=== PATIENT | female | born 1990 | race Caucasian/White ===

== ENCOUNTER 2019-08-25 05:03 | Inpatient (IN) | payer BC ==
[2019-08-25 06:09] VITALS: BMI 37.4
[2019-08-25] MEDS ORDERED: NS / Oxytocin 40 units/1000ml 1,000 ML IV PRN (07:05)
[2019-08-25] MEDS ORDERED: Methylergonovine 0.2 MG/ML VIAL IM PRN (07:05)
[2019-08-25] MEDS ORDERED: Misoprostol 200 MCG TAB PR PRN (07:05)
[2019-08-25] MEDS ORDERED: hydrALAZINE 20 MG/ML VIAL SLOW IVP PRN ×2 (07:05→16:00)
[2019-08-25] MEDS ORDERED: Promethazine HCl 25 MG/ML VIAL IM PRN ×3 (07:05→16:00)
[2019-08-25] MEDS ORDERED: Lidocaine 1% (PF) 30 ML VIAL SC PRN (07:05)
[2019-08-25] MEDS ORDERED: Ibuprofen 800 MG TAB PO PRN (07:05)
[2019-08-25] MEDS ORDERED: Carboprost 250 MCG/ML AMP IM PRN (07:05)
[2019-08-25] MEDS ORDERED: Acetaminophen 500 MG TAB PO PRN (07:05)
[2019-08-25] MEDS ORDERED: HYDROcodone/Acetaminophen 5/325 mg Tablet PO PRN (07:05)
[2019-08-25] MEDS ORDERED: Ondansetron PF 4 MG/2 ML Vial IVP PRN ×3 (07:05→16:00)
[2019-08-25] MEDS ORDERED: Butorphanol Tartrate 1 MG/ML VIAL SLOW IVP PRN (07:05)
[2019-08-25] MEDS ORDERED: NS w/ Oxytocin 10 units 500 ML IV SCH (07:15)
[2019-08-25] MEDS: Lactated Ringer's 1,000 ML IV SCH ×2 (07:18→10:11)
[2019-08-25 07:31] LABS: Hemoglobin 11.6 g/dL (12.0-16.0); Mean Corpuscular HGB CONC 34.2 g/dL (32.0-36.0); Mean Corpuscular Volume 87.6 fL (78.0-98.0); Platelet Count 153 thou/uL (130-400); RBC Distribution Width 11.7 % (11.5-14.5); Red Blood Cell (RBC) Count 3.88 mill/uL (4.20-5.40)
[2019-08-25] MEDS ORDERED: Fentanyl 4 mcg/Bup 0.1% Cadd 100 ML ONE (07:48)
--- NOTE | 2019-08-25 08:11 | PDOC.LDHP ---
Labor and Delivery H&P Chief complaint: scheduled induction HPI: 29yo at 39w1d by LMP here for elective IOL due to EFW > 99%ile and favorable SVE. No complaints Current gestational age (weeks): 39 Due date: 08/31/19 Dating criteria: last menstrual period Grav: 1 Para: 0 Current complications: none Abnormal US findings: No (EFW > 99%ile) Past Medical History: denies Current medications: pre-hermes vitamins Previous surgical history: other (shoulder surgery) Allergies/Adverse Reactions: Allergies Allergy/AdvReac Type Severity Reaction Status Date / Time No Known Allergies Allergy Verified 04/09/13 13:51 Social history: none - Physical Exam Vital signs reviewed and normal: yes General: NAD Heart: RRR Lungs: CTAB Abdomen: gravid Extremeties: no edema FHT: category 1 [place] contractions every: rare - Vaginal Exam cm dilated: 4 Effacement: 75% Station: 0 (arom clear) - OB Labs Blood type: O RH: positive Antibody Screen: negative HIV: negative RPR: negative HEPSAg: negative 1 hour GCT: negative GBS: negative Urine drug screen: negative Rubella: immune - Assessment L&D Assessment: elective induction at term - Plan Plan: admit to L&D, labor augmentation if indicated, informed consent obtained, anesthesia consult for pain management
[2019-08-25 08:15] LABS: Syphilis Antibody Nonreactive (Nonreactive); Syphilis Antibody Index 0.07 S/CO (<1.00 Non-Reactive)
[2019-08-25 08:16] LABS: HBSAg Index 0.17 S/CO (0-0.99); Hep B Surf Ag Non-Reactive S/CO (NonReactive)
[2019-08-25] MEDS ORDERED: Lidocaine 1.5%/Epinephrine 1:200,000 5 ML AMPUL IJ ONE (08:17)
[2019-08-25] MEDS ORDERED: ePHEDrine/0.9% NaCl/PF SYRINGE 50 mg/10 ml SLOW IVP PRN (11:35)
[2019-08-25] MEDS ORDERED: diphenhydrAMINE 50 MG/ML VIAL IVP PRN (11:35)
[2019-08-25] MEDS ORDERED: Acetaminophen 325 MG TAB PO PRN (11:35)
[2019-08-25] MEDS ORDERED: Naloxone HCl 0.4 mg/ml Vial IVP PRN ×2 (11:35)
[2019-08-25] MEDS ORDERED: Lactated Ringer's 500 ML IV PRN (11:35)
[2019-08-25] MEDS ORDERED: Fentanyl 4 mcg/Bupivacaine 0.1% Cassette 100 ML EPIDURAL SCH (11:45)
[2019-08-25] MEDS ORDERED: Communication Order-Pharmacy FS PRN (11:45)
--- NOTE | 2019-08-25 11:49 | PDOC.LDPN ---
Labor & Delivery Progress Note - Subjective Subjective: comfortable - Objective Vital signs reviewed and normal: yes General: NAD Uterine fundus: non tender Dilation: 7 Effacement: 90% Station: 0 FHT: category 1 [place] contractions every: 3-4min IUPC placed: yes Plan: pitocin for augmentation
[2019-08-25] MEDS ORDERED: Lidocaine 1% (PF) 30 ML VIAL ONE (12:19)
[2019-08-25] MEDS ORDERED: NS / Oxytocin 40 units/1000ml 1,000 ML ONE (12:19)
[2019-08-25] MEDS ORDERED: Bupivacaine HCl 0.5%/Epinephrine 1:200,000/PF 30 ml Vial ONE (13:01)
--- NOTE | 2019-08-25 14:56 | PDOC.OPDEL ---
OB Operative/Delivery Note Delivery Dr/Surgeon: [place] Assist: n/a Pre-Delivery Diagnosis: elective induction Procedure/Post Delivery Dx: spontaneous vaginal delivery Weeks gestation: 39 Anesthesia: epidural - Findings A Sex: female - 1 min: 8 - 5 min: 9 - Additional Findings/Plan Placenta delivered: spontaneous Repaired Obstetrical Laceration: 2nd degree Estimated blood loss: 800 Compilations/Other Findings: bleeding from vaginal lac, needing multiple stitches for hemostasis. Excellent hemostasis following repair. Post delivery plan: routine recovery
[2019-08-25] MEDS ORDERED: diphenhydrAMINE 25 MG CAP PO PRN (16:00)
[2019-08-25] MEDS ORDERED: Preparation H Ointment 28 GM TUBE PR PRN (16:00)
[2019-08-25] MEDS ORDERED: Lanolin Ointment 7 GM TUBE TOP PRN (16:00)
[2019-08-25] MEDS ORDERED: Milk Of Magnesia 30 ML UDCUP PO PRN (16:00)
[2019-08-25] MEDS ORDERED: Bisacodyl 10 MG SUPP PR PRN (16:00)
[2019-08-25] MEDS ORDERED: NS / Oxytocin 40 units/1000ml 1,000 ML IV SCH (16:00)
[2019-08-25] MEDS ORDERED: Benzocaine-Menthol 82.5 ML CAN TOP PRN (16:00)
[2019-08-25] MEDS: Ibuprofen 800 MG TAB PO SCH ×2 (16:18→23:30)
[2019-08-25] MEDS: HYDROcodone/Acetaminophen 5/325 mg Tablet PO PRN ×2 (18:34→23:31)
[2019-08-25] MEDS: Ferrous Sulfate 325 MG TAB PO SCH (18:35)
[2019-08-25] MEDS: Docusate Calcium (SURFAK) 240 MG CAP PO SCH (23:30)
[2019-08-26] MEDS: HYDROcodone/Acetaminophen 5/325 mg Tablet PO PRN ×4 (06:11→20:13)
[2019-08-26 06:31] LABS: Hemoglobin 10.8 g/dL (12.0-16.0); Mean Corpuscular HGB CONC 33.7 g/dL (32.0-36.0); Mean Corpuscular Hemoglobin 29.7 pg (27.0-31.0); Mean Corpuscular Volume 88.1 fL (78.0-98.0); Mean Platelet Volume 8.8 fL (7.4-10.4); Platelet Count 139 thou/uL (130-400); RBC Distribution Width 11.5 % (11.5-14.5); Red Blood Cell (RBC) Count 3.65 mill/uL (4.20-5.40); White Blood Cell (WBC) Count 16.3 thou/uL (4.8-10.8)
--- NOTE | 2019-08-26 08:25 | PDOC.PP ---
Post Progress Note Post Day #: 1 Subjective: Pt doing well on PPD1. Pain well controlled. Lochia similar to menses. Baby is breast feeding and latching. Pt has been up and ambulatory and urinating normally. No chest pain, SOB or leg swelling. PO intake tolerated: yes Flatus: yes Ambulation: yes Vital Signs (12 hours) Temp Pulse Resp BP 08/26/19 06:10 98.2 F 89 16 115/59 L 08/25/19 23:30 98.9 F 87 16 115/58 L Weight Weight 246 lb - Physical Examination General: NAD Respiratory: non-labored breathing Abdominal: + bowel sounds, lochia, no distention, appropriately TTP Fundus firm & at: 2 cm below umbilicus Extremities: negative homans (B) Skin: no rash Neurological: no gross focal deficits Psychiatric: A&Ox3, normal affect Result Diagrams: 08/26/19 06:05 Additional Labs: Post Labs Blood Type O POSITIVE 08/25/19 06:03 Hep Bs Antigen Non-Reactive S/CO (NonReactive) 08/25/19 06:03 (1) Vaginal delivery Code(s): O80 - ENCOUNTER FOR FULL-TERM UNCOMPLICATED DELIVERY Status: Acute - Assessment/Plan PT doing well on PPD1. VSS, afebrile. Breast feeding well but would like consultation. Plan to continue routine PP care at this time with discharge tomorrow.
[2019-08-26] MEDS ORDERED: Adacel (T-DAP) 0.5 ML SYRINGE IM ONE (09:00)
[2019-08-26] MEDS: Prenatal Vitamin 1 TAB PO SCH (09:37)
[2019-08-26] MEDS: Docusate Calcium (SURFAK) 240 MG CAP PO SCH ×2 (09:37→21:35)
[2019-08-26] MEDS: Ferrous Sulfate 325 MG TAB PO SCH ×2 (09:37→18:11)
[2019-08-26] MEDS: Ibuprofen 800 MG TAB PO SCH ×2 (14:34→21:35)
[2019-08-26 20:29] VITALS: TEMP 98.4
[2019-08-26] MEDS ORDERED: Witch Hazel-Glycerin 1 EACH JAR TOP PRN (21:10)
[2019-08-27] MEDS: HYDROcodone/Acetaminophen 5/325 mg Tablet PO PRN (00:25)
[2019-08-27] MEDS: Ibuprofen 800 MG TAB PO SCH (05:47)
[2019-08-27 08:29] VITALS: BP 106/69
--- NOTE | 2019-08-27 08:39 | DIS ---
DATE OF ADMISSION: 08/25/2019 DATE OF DISCHARGE: 08/27/2019 ADMITTING DIAGNOSES: 1. Intrauterine at 39 weeks. 2. Elective induction of labor. 3. Favorable cervix. DISCHARGE DIAGNOSES: 1. Intrauterine at 39 weeks. 2. Elective induction of labor. 3. Favorable cervix. CONSULTATIONS: None. PROCEDURE PERFORMED: Term spontaneous vaginal delivery. HOSPITAL COURSE: The patient is a 29-year-old G1, now P1, female, presenting at 39 weeks and a day for elective induction of labor and a favorable cervix. Her labor course was uncomplicated. She delivered by term spontaneous vaginal delivery, resulting in a second-degree laceration and 800 mL blood loss. Her course has been uncomplicated. She is tolerating p.o., voiding on her own, having decreased lochia. She has been having pain in her bottom at the place of the laceration and having some difficulty keeping that pain under control. She reports does not work sufficiently and is requesting a narcotic for discharge. We have discussed the potential complications with regular narcotic use on the side of the baby as she is breast-feeding and I have counseled her to take the narcotic only as necessary and to watch for signs of sedation on the side of the baby, especially day 4 and day 5. The patient has expressed understanding. PHYSICAL EXAMINATION: VITAL SIGNS: Today; blood pressure is 99/61, temperature 98.4, pulse of 89, respiratory rate of 16, and saturating 100% on room air. GENERAL: She appears to be in no acute distress. She is alert and oriented, cooperative and pleasant to interact with. HEENT: Head is normocephalic, atraumatic. Fundus is firm. EXTREMITIES: Nontender. Nonedematous. Starting hemoglobin is 11.6, hemoglobin 10.8. The patient is being discharged to home. She has instructions to follow up with Dr. Avila in 6 weeks or sooner if she experiences fever, increasing pain, or bleeding. She will be discharged home on ibuprofen 600 mg to be taken every 6 hours as needed for pain control and tramadol 50 mg 1 to 2 tablets p.o. q.4 hours p.r.n. for pain, #20. Job ID: [id number]
[2019-08-27] MEDS: Ferrous Sulfate 325 MG TAB PO SCH (09:51)
[2019-08-27] MEDS: Prenatal Vitamin 1 TAB PO SCH (09:56)
[2019-08-27] MEDS: Docusate Calcium (SURFAK) 240 MG CAP PO SCH (09:57)
== END 2019-08-27 12:20 | disposition home or self-care (01) | DRG 807 ==
LOC: L&D 05:03 → 3SW 17:20
PROVIDERS: ADMIT Student in an Organized Health Care Education/Training Program; ATTEND Student in an Organized Health Care Education/Training Program
PROC: 10907ZC Drainage of Amniotic Fluid, Therapeutic from Products of Conception, Via Natural or Artificial Opening (ICD-10-PCS; principal; 2019-08-25)
PROC: 10E0XZZ Delivery of Products of Conception, External Approach (ICD-10-PCS; 2019-08-25)
PROC: 0KQM0ZZ Repair Perineum Muscle, Open Approach (ICD-10-PCS; 2019-08-25)
PROC: 10H07YZ Insertion of Other Device into Products of Conception, Via Natural or Artificial Opening (ICD-10-PCS; 2019-08-25)
PROC: 3E033VJ Introduction of Other Hormone into Peripheral Vein, Percutaneous Approach (ICD-10-PCS; 2019-08-25)
DX: O70.1 Second degree perineal laceration during delivery (principal); Z37.0 Single live birth; Z3A.39 39 weeks gestation of pregnancy
CPT/HCPCS: 36415; 51702; 85027; 86780; 86850; 86900; 86901; 87340; J0670; J2001; J2590; J3490

== ENCOUNTER 2023-07-22 14:57 | Outpatient (CLI) | payer BC | END 2023-07-22 14:58 | disposition home or self-care (01) | LOC: BICMAMMO 14:57 | PROVIDERS: ATTEND Student in an Organized Health Care Education/Training Program | DX: N63.20 Unspecified lump in the left breast, unspecified quadrant (principal) | CPT/HCPCS: 77066; G0279 ==